=== PATIENT | male | born 1980 | race Caucasian/White ===

== ENCOUNTER 2016-10-06 01:24 | Emergency (ER) | payer OTHER ==
[~2016-10-06] VITALS: Ht 172.7 cm; Wt 111.4 kg
[~2016-10-06 01:24] MED LIST: CYCL10 PO
[2016-10-06 02:57] LABS: INFLUENZA TYPE B NEGATIVE FOR TYPE B (NEGATIVE)
[2016-10-06] MEDS ORDERED: HYDROCODONE/ACETAMINOPHEN 5-325 MG TABLET PO ONE (04:00)
[2016-10-06] MEDS ORDERED: IBUPROFEN 600 MG TABLET PO ONE (04:00)
[2016-10-06] MEDS ORDERED: CEPHALEXIN MONOHYDRATE 500 MG CAPSULE PO ONE (04:00)
[2016-10-06] MEDS ORDERED: GuaiFENesin/D-METHORPHAN [SUGAR-FREE] 200-20MG/10 ML SYRUP UDCUP PO ONE (04:00)
[2016-10-06 04:17] VITALS: BP 133/78
== END 2016-10-06 04:21 | disposition home or self-care (01) ==
LOC: EMS 01:26
DX: J40 Bronchitis, not specified as acute or chronic (principal); J06.9 Acute upper respiratory infection, unspecified
CPT/HCPCS: 87430; 87804; 99285